=== PATIENT | female | born 1980 | race Caucasian/White ===

== ENCOUNTER → 2018-01-04 | Outpatient (CLI) | payer OTHER | LOC: COL.RAD 07:48 | DX: K21.9 Gastro-esophageal reflux disease without esophagitis (principal); K58.9 Irritable bowel syndrome, unspecified | CPT/HCPCS: A9541 ==

== ENCOUNTER 2018-04-27 08:55 | Day surgery (SDC) | payer OTHER ==
[~2018-04-27] VITALS: Ht 172.7 cm; Wt 88.3 kg
[2018-04-27] VITALS (11 sets, daily range): BP systolic 111–124; BP diastolic 56–77; PULSE 73–106; TEMP 98.1–98.6
[2018-04-27] MEDS ORDERED: SINGULAIR 110 MG/TAB PO (10:11)
[2018-04-27] MEDS ORDERED: ZYRTEC 10MG10 MG PO (10:11)
[2018-04-27] MEDS ORDERED: PROBIOTIC FORMU1 CAP PO (10:11)
[2018-04-27] MEDS ORDERED: ACIPHEX20 MG PO (10:11)
[2018-04-27] MEDS ORDERED: SYNTHROID0.2 MG/TAB PO (10:12)
[2018-04-27] MEDS ORDERED: LEVBID0.375 MG PO (10:13)
--- NOTE | 2018-04-27 12:55 | NUR ---
returned to room per bed from PACU, awake and alert, IV infusing per brook flow at 80mlhr, SCDS on bilaterally, abd port sites with bandaids CD&I, denies needs
--- NOTE | 2018-04-27 13:15 | NUR ---
appears to sleep between checks, only c/o pain to left shoulder
--- NOTE | 2018-04-27 13:45 | NUR ---
continues to rest between checks, takins sips of water and tolerates well, full assessment completed, see interventions for further info,
--- NOTE | 2018-04-27 14:45 | NUR ---
continues to doze between checks and take sips of wawter, assisted out of bed and ambulates to the door and then to recliner, will try sitting up in recliner to help relieve shoulder pain, denies other needs
--- NOTE | 2018-04-27 16:00 | NUR ---
remains sitting up in the chair, states she is beginning to feel a little hungry, instructed on ordering full liquids and providee chocolate pudding per her request, denies other needs, at bedside
--- NOTE | 2018-04-27 16:35 | NUR ---
c/os abdominal pain and medicated with hydrocodone 5mg 1 tab, will monitor and if doesn't help with pain will given second tab
--- NOTE | 2018-04-27 17:00 | NUR ---
remains in recliner, states pain pill is beginning to help abdominal pain,
--- NOTE | 2018-04-27 17:31 | NUR ---
having full liquids and tolerates well, states pain is OK at this time
--- NOTE | 2018-04-27 18:50 | NUR ---
bedside shift report given to CARLOS Alba
--- NOTE | 2018-04-27 20:43 | NUR ---
Patient ambulates in hallway. Reports pain to shoulders and upper abdomen. Medicated with IV Dilaudid 1mg now.
--- NOTE | 2018-04-27 23:00 | NUR ---
Up to bathroom, voids 400cc without problem. Medicated with [place] 2 tabs at this time for pain to upper abdomen and shoulders. Lap sites x6 dry and intact with bandaids covering. IV saline locked, taking oral fluids well.
[2018-04-28 00:18] VITALS: BP 116/66; PULSE 86; TEMP 98.1
--- NOTE | 2018-04-28 03:05 | NUR ---
Patient up to bathroom, voids 500cc without problem. Reports pain to upper abdomen and shoulders. Medicated with IV Dilaudid 0.5mg now with dose of IV Zofran 4mg. Will monitor for changes.
[2018-04-28 04:15] VITALS: BP 110/65; PULSE 94; TEMP 98.5
--- NOTE | 2018-04-28 06:45 | NUR ---
bedside shift report received from CARLOS Alba, she is up to bathroom and c/o abdominal cramping and unable to swallow pain pill, meds crushed and given in pudding, c/o some back pain also, has minimal bowel sounds and some abdominal distention
--- NOTE | 2018-04-28 07:25 | NUR ---
quietly resting in bed with eyes closed, resp quiet and easy, no crying ormoaning or moving about in bed
--- NOTE | 2018-04-28 08:05 | NUR ---
continues to rest quietly in bed with eyes closed, resp quiet and easy
[2018-04-28 09:00] VITALS: BP 115/79; PULSE 98; TEMP 99.1
--- NOTE | 2018-04-28 09:00 | NUR ---
awake now visiting with dietitian, states painis better at this time
--- NOTE | 2018-04-28 09:19 | NUR ---
full assessment completed, see interventions for further info, up to bathroom independently, denies needs
--- NOTE | 2018-04-28 10:10 | NUR ---
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 No needs right now.
--- NOTE | 2018-04-28 10:30 | NUR ---
beginning to c/o pain and medicated with hydrocodone 5mg 2 tabs
--- NOTE | 2018-04-28 11:48 | NUR ---
ambulated in [place] with standby assist, tolerated well, c/o increased pain while ambulating, states she is only beleching and has not passed flatus rectally, back to room and into bathroom and then back to bed
--- NOTE | 2018-04-28 12:19 | NUR ---
Dr Mane in to see patient, will plan discharge later today
--- NOTE | 2018-04-28 13:00 | NUR ---
here for patient's discharge, discharge instructions given to patient and her , verbalizes understanding
--- NOTE | 2018-04-28 13:15 | NUR ---
discharged per WC
== END 2018-04-28 13:15 | disposition home or self-care (01) ==
LOC: SDCO 08:55 → SURG 12:55 → SDCO 04-28 13:15
DX: K21.9 Gastro-esophageal reflux disease without esophagitis (principal); K22.70 Barrett's esophagus without dysplasia; K44.9 Diaphragmatic hernia without obstruction or gangrene; K58.9 Irritable bowel syndrome, unspecified; Z79.899 Other long term (current) drug therapy; Z85.850 Personal history of malignant neoplasm of thyroid; E89.0 Postprocedural hypothyroidism; E78.00 Pure hypercholesterolemia, unspecified; Z90.49 Acquired absence of other specified parts of digestive tract; Z90.721 Acquired absence of ovaries, unilateral
CPT/HCPCS: OP; A9284; C1713; J0690; J1100; J1170; J1885; J2405; J2550; J2704; J2710; J3010; J7120

== ENCOUNTER 2019-08-10 13:22 | Emergency (ER) | payer OTHER ==
[~2019-08-10] VITALS: Ht 172.7 cm; Wt 68.2 kg
[~2019-08-10 13:22] MED LIST: ACIPHEX20 MG PO; LEVBID0.375 MG PO; PROBIOTIC FORMU1 CAP PO; SINGULAIR 110 MG/TAB PO; SYNTHROID0.2 MG/TAB PO; ZYRTEC 10MG10 MG PO
[2019-08-10 13:31] VITALS: TEMP 98.4
[2019-08-10 13:53] LABS: BASO # 0.1 (0.0-0.2); BASO % 0.9 % (0.0-2.0); EOS # 0.1 (0.0-0.7); EOS % 1.5 % (0-4.0); GRAN # 4.5 (1.4-6.5); GRAN % 65.4 % (42.2-75.2); HEMOGLOBIN 10.5 g/dl (12.5-16.0); LYMPH # 1.7 (1.2-3.4); LYMPH % 24.7 % (20.0-51.0); MEAN CELL VOLUME 89 fl (80.0-100.0); MEAN CORPUSCULAR HEMOGLOBIN 29 pg (27.0-31.0); MEAN CORPUSCULAR HGB CONC 33 g/dl (33.0-37.0); MONO # 0.5 (0.1-0.6); MONO % 7.4 % (1.7-9.3); PLATELET COUNT 252 K/mm3 (130-400); RED BLOOD COUNT 3.57 M/mm3 (4.10-5.30)
[2019-08-10 13:59] LABS: HEMATOCRIT 31.7 % (37.0-47.0)
[2019-08-10 14:02] LABS: ALBUMIN 3.6 gm/dL (3.5-5.0); BILIRUBIN,TOTAL 0.6 mg/dL (0.0-1.0); CALCIUM 8.6 mg/dL (8.4-10.2); CREATININE, serum 0.66 (0.52-1.25); TOTAL PROTEIN 6.3 gm/dL (6.4-8.2)
[2019-08-10 15:00] VITALS: BP 116/74; PULSE 82
== END 2019-08-10 15:00 | disposition home or self-care (01) ==
LOC: COL.ER 13:22
PROVIDERS: Family Medicine
DX: K22.2 Esophageal obstruction (principal)
CPT/HCPCS: Q9967